=== PATIENT | female | born 1985 | race Caucasian/White ===

== ENCOUNTER 2016-02-28 00:35 | Emergency (ER) | payer MEDICAID ==
[~2016-02-28] VITALS: Ht 170.2 cm; Wt 105.0 kg
[~2016-02-28 00:35] MED LIST: AMOXICILLIN 50500 MG PO; AMOXICILLIN 8751 TAB PO; ANTIVERT 25MG25 MG PO; AUGMENTIN 875 M1 TAB PO; BENADRYL25 M2; BENADRYL25 M2 PO; CEPHALEXIN500 M1 PO; CLEOCIN HC150 MG/CAP PO; DOXYCYCLINE 10100 MG PO; FLEXERIL 1010 MG/TAB PO; LORTAB 5/500 501 TAB PO; MECLIZINE25 M1 PO; MELATONIN1 M1 PO; MIRENA52 MG IU; MOTRIN 800800 MG/TAB PO; NAPROSYN500 MG PO; NEXIUM 40MG40 MG PO; NO HOME MEDICATIONS; NORCO 325 MG-51 TAB PO; NORCO 325 MG-7.1 TAB PO; PEN-VEE K500 MG PO; PEPCID 20MG TAB20 MG PO; PERCOCET 5/321 UDTAB PO; PHENERGAN 25 TA25 MG PO; PREDNISONE10 MG PO; PRENATAL VITAMI1 TA5 PO; PRENATAL1 TA2 PO; PRENATAL1 TA3 PO; PRILOSEC 20MG20 MG PO; TUSS PO; TYLENOL 325MG325 MG PO; TYLENOL 500MG500 MG PO; TYLENOL W/COD1 UDTAB PO; ULTRAM 50MG TAB50 MG PO; ZANTAC 150MG T150 MG PO; ZITHROMAX Z PA250 MG PO; tussionex PO
[2016-02-28 00:39] VITALS: BP 131/83; TEMP 97.9
[2016-02-28 01:18] LABS: PH 5 (5-8); URINE APPEARANCE Clear; URINE BACTERIA None Seen /hpf; URINE BILIRUBIN Negative (NEGATIVE); URINE BLOOD Negative (NEGATIVE); URINE COLOR Yellow; URINE GLUCOSE Negative (NEGATIVE); URINE KETONE Negative (NEGATIVE); URINE RBC 0-2 /hpf; URINE UROBILINOGEN Negative (NEGATIVE); URINE WBC 0-2 /hpf
[2016-02-28] MEDS ORDERED: FLEXERIL 1010 MG/TAB PO (01:24)
[2016-02-28] MEDS ORDERED: MOTRIN 800800 MG/TAB PO (01:24)
[2016-02-28 01:32] VITALS: PULSE 74
== END 2016-02-28 01:33 | disposition home or self-care (01) ==
LOC: COL.ER 00:35
PROVIDERS: Physician Assistant
DX: M54.6 Pain in thoracic spine (principal)
CPT/HCPCS: J1885

== ENCOUNTER 2016-06-26 17:26 | Emergency (ER) | payer MEDICAID ==
[~2016-06-26] VITALS: Ht 167.6 cm; Wt 97.3 kg
[2016-06-26 17:32] VITALS: BP 119/84; TEMP 99
[2016-06-26 18:35] LABS: PH 5 (5-8); URINE APPEARANCE Hazy; URINE BILIRUBIN Negative (NEGATIVE); URINE BLOOD 2+ (NEGATIVE); URINE COLOR Yellow; URINE GLUCOSE Negative (NEGATIVE); URINE KETONE Negative (NEGATIVE); URINE UROBILINOGEN Negative (NEGATIVE)
[2016-06-26] MEDS ORDERED: MACROBID 1100 MG/CAP PO (19:10)
[2016-06-26 19:23] VITALS: PULSE 88
== END 2016-06-26 19:24 | disposition home or self-care (01) ==
LOC: COL.ER 17:26
PROVIDERS: Physician Assistant
DX: N39.0 Urinary tract infection, site not specified (principal)

== ENCOUNTER 2016-12-22 16:23 | Emergency (ER) | payer MEDICAID ==
[~2016-12-22] VITALS: Ht 170.2 cm; Wt 97.3 kg
[~2016-12-22 16:23] MED LIST changes: +MACROBID 1100 MG/CAP PO
[2016-12-22 16:30] VITALS: BP 145/70; TEMP 98
[2016-12-22 18:32] VITALS: PULSE 73
== END 2016-12-22 18:33 | disposition home or self-care (01) ==
LOC: COL.ER 16:23
DX: G43.909 Migraine, unspecified, not intractable, without status migrainosus (principal)
CPT/HCPCS: J1200; J1885; J2550

== ENCOUNTER 2017-02-26 13:19 | Emergency (ER) | payer MEDICAID ==
[~2017-02-26] VITALS: Ht 170.2 cm; Wt 89.5 kg
[2017-02-26 13:21] VITALS: BP 137/70; TEMP 98.1
[2017-02-26] MEDS ORDERED: TOPAMAX 25MG25 M1 PO (13:25)
[2017-02-26] MEDS ORDERED: PROBIOTIC FORMU1 CAP PO (13:25)
[2017-02-26 13:55] LABS: INFLUENZA A NEGATIVE; INFLUENZA B NEGATIVE
[2017-02-26] MEDS ORDERED: TESSALON P100 MG/CAP PO (15:22)
[2017-02-26] MEDS ORDERED: ZITHROMAX Z PA250 MG PO (15:23)
[2017-02-26 15:31] VITALS: PULSE 86
== END 2017-02-26 15:32 | disposition home or self-care (01) ==
LOC: COL.ER 13:19
PROVIDERS: Physician Assistant
DX: J40 Bronchitis, not specified as acute or chronic (principal); Z98.51 Tubal ligation status; Z87.891 Personal history of nicotine dependence

== ENCOUNTER → 2017-11-23 | Outpatient (CLI) | payer MEDICAID ==
[~2017-11-23] MED LIST changes: +PROBIOTIC FORMU1 CAP PO; +TESSALON P100 MG/CAP PO; +TOPAMAX 25MG25 M1 PO
== END ==
LOC: COL.RAD 13:04
DX: M48.061 Spinal stenosis, lumbar region without neurogenic claudication (principal)

== ENCOUNTER 2018-01-25 20:14 | Emergency (ER) | payer MEDICAID ==
[~2018-01-25] VITALS: Ht 167.6 cm; Wt 90.9 kg
[2018-01-25 20:22] VITALS: BP 133/82; TEMP 97.4
[2018-01-25] MEDS ORDERED: TESSALON PERLE200 MG PO (21:45)
[2018-01-25] MEDS ORDERED: ZITHROMAX500 M2 PO (21:45)
[2018-01-25 22:09] VITALS: PULSE 93
== END 2018-01-25 22:10 | disposition home or self-care (01) ==
LOC: COL.ER 20:14
DX: J40 Bronchitis, not specified as acute or chronic (principal); Z98.51 Tubal ligation status; Z98.890 Other specified postprocedural states
CPT/HCPCS: J7512

== ENCOUNTER 2018-06-17 18:16 | Emergency (ER) | payer MEDICAID ==
[~2018-06-17] VITALS: Ht 167.6 cm; Wt 88.6 kg
[~2018-06-17 18:16] MED LIST changes: +TESSALON PERLE200 MG PO; +ZITHROMAX500 M2 PO
[2018-06-17 18:28] VITALS: BP 131/75; TEMP 97.1
[2018-06-17 20:00] VITALS: PULSE 93
== END 2018-06-17 20:00 | disposition home or self-care (01) ==
LOC: COL.ER 18:16
DX: G43.909 Migraine, unspecified, not intractable, without status migrainosus (principal)
CPT/HCPCS: J1200; J1885

== ENCOUNTER 2018-06-27 22:57 | Emergency (ER) | payer MEDICAID ==
[~2018-06-27] VITALS: Ht 167.6 cm; Wt 93.2 kg
[2018-06-27 23:09] VITALS: BP 126/68; TEMP 98.7
[2018-06-28 00:33] LABS: BASO % 0.4 % (0.0-2.0); EOS # 0.2 (0.0-0.7); EOS % 2.7 % (0-4.0); GRAN # 5.1 (1.4-6.5); GRAN % 65.9 % (42.2-75.2); HEMOGLOBIN 12.6 g/dl (12.5-16.0); LYMPH # 1.8 (1.2-3.4); LYMPH % 23.6 % (20.0-51.0); MEAN CELL VOLUME 84 fl (80.0-100.0); MEAN CORPUSCULAR HEMOGLOBIN 29 pg (27.0-31.0); MEAN CORPUSCULAR HGB CONC 34 g/dl (33.0-37.0); MEAN PLATELET VOLUME 8.9 fl (7.4-10.4); MONO # 0.5 (0.1-0.6); MONO % 6.9 % (1.7-9.3); PLATELET COUNT 353 K/mm3 (130-400); RED BLOOD COUNT 4.35 M/mm3 (4.10-5.30); REDCELL DISTRIBUTION WIDTH-CV 13.1 % (11.5-14.5)
[2018-06-28 00:34] LABS: HEMATOCRIT 36.7 % (37.0-47.0)
[2018-06-28 00:43] LABS: ALBUMIN 4.2 gm/dL (3.5-5.0); BILIRUBIN,TOTAL 0.7 mg/dL (0.0-1.0); CALCIUM 8.7 mg/dL (8.4-10.2); CREATININE, serum 0.95 (0.52-1.25); POTASSIUM 3.9 mmol/L (3.4-5.0); TOTAL PROTEIN 7.5 gm/dL (6.4-8.2)
[2018-06-28] MEDS ORDERED: ZITHROMAX Z PA250 MG PO (02:24)
[2018-06-28 02:43] VITALS: PULSE 90
== END 2018-06-28 02:30 | disposition home or self-care (01) ==
LOC: COL.ER 22:57
PROVIDERS: Physician Assistant
DX: J20.9 Acute bronchitis, unspecified (principal); F17.210 Nicotine dependence, cigarettes, uncomplicated; Z98.890 Other specified postprocedural states; Z98.51 Tubal ligation status
CPT/HCPCS: Q9967

== ENCOUNTER 2018-07-19 09:00 | Outpatient (RCR) | payer MEDICAID | END 2018-08-14 14:51 | disposition home or self-care (01) | LOC: WSOT 09:00 | DX: G56.03 Carpal tunnel syndrome, bilateral upper limbs (principal) ==

== ENCOUNTER 2018-12-16 18:16 | Emergency (ER) | payer MEDICAID ==
[~2018-12-16] VITALS: Ht 167.6 cm; Wt 97.7 kg
[2018-12-16 18:36] VITALS: BP 140/67; TEMP 97.2
[2018-12-16] MEDS ORDERED: NAPROSYN500 MG PO (20:19)
[2018-12-16] MEDS ORDERED: FLEXERIL5 MG PO (20:19)
[2018-12-16 20:30] VITALS: PULSE 67
== END 2018-12-16 20:33 | disposition home or self-care (01) ==
LOC: COL.ER 18:16
DX: M25.511 Pain in right shoulder (principal); M25.512 Pain in left shoulder; E03.9 Hypothyroidism, unspecified; G43.909 Migraine, unspecified, not intractable, without status migrainosus; G62.9 Polyneuropathy, unspecified; Z87.891 Personal history of nicotine dependence
CPT/HCPCS: J1885

== ENCOUNTER → 2020-02-06 | Outpatient (CLI) | payer MEDICAID ==
[~2020-02-06] MED LIST changes: +FLEXERIL5 MG PO
== END ==
LOC: COL.RAD 12:35
DX: G43.909 Migraine, unspecified, not intractable, without status migrainosus (principal)

== ENCOUNTER 2020-05-31 22:11 | Emergency (ER) | payer MEDICAID ==
[~2020-05-31] VITALS: Ht 167.6 cm; Wt 100.0 kg
[2020-05-31 22:15] VITALS: TEMP 97
[2020-05-31] MEDS ORDERED: NORCO 325 MG-51 TAB PO (23:07)
[2020-05-31] MEDS ORDERED: CEPHALEXIN500 M1 PO (23:08)
[2020-05-31 23:19] VITALS: BP 146/96; PULSE 110
== END 2020-05-31 23:20 | disposition home or self-care (01) ==
LOC: COL.ER 22:11
DX: S61.233A Puncture wound without foreign body of left middle finger without damage to nail, initial encounter (principal); Z88.0 Allergy status to penicillin; Z88.1 Allergy status to other antibiotic agents; Z88.5 Allergy status to narcotic agent; W29.8XXA Contact with other powered hand tools and household machinery, initial encounter

== ENCOUNTER 2020-09-19 21:24 | Emergency (ER) | payer MEDICAID ==
[~2020-09-19] VITALS: Ht 162.6 cm; Wt 100.0 kg
[2020-09-19 21:29] VITALS: TEMP 97.5
[2020-09-19] MEDS ORDERED: ZOFRAN 4MG T4 MG/TAB PO (22:40)
[2020-09-19 22:46] VITALS: BP 121/73; PULSE 79
== END 2020-09-19 22:46 | disposition home or self-care (01) ==
LOC: COL.ER 21:24
DX: G43.909 Migraine, unspecified, not intractable, without status migrainosus (principal); Z79.891 Long term (current) use of opiate analgesic
CPT/HCPCS: J1200; J1885; J2405

== ENCOUNTER 2022-04-11 23:31 | Emergency (ER) | payer MEDICAID ==
[~2022-04-11] VITALS: Ht 170.2 cm; Wt 100.0 kg
[~2022-04-11 23:31] MED LIST changes: +ZOFRAN 4MG T4 MG/TAB PO; +ZOFRAN ODT4 MG PO
[2022-04-11 23:44] VITALS: TEMP 97.8
[2022-04-12 00:40] LABS: BASO % 0.6 % (0.0-2.0); EOS # 0.2 K/mm3 (0.0-0.7); EOS % 3.4 % (0.0-4.0); GRAN # 4.1 K/mm3 (1.4-6.5); GRAN % 63.4 % (42.2-75.2); HEMOGLOBIN 12.7 g/dl (12.5-16.0); LYMPH # 1.6 K/mm3 (1.2-3.4); MEAN CELL VOLUME 83 fl (80.0-100.0); MEAN CORPUSCULAR HEMOGLOBIN 29 pg (27-31); MEAN CORPUSCULAR HGB CONC 35 g/dl (33.0-37.0); MEAN PLATELET VOLUME 8.9 fl (7.4-10.4); MONO # 0.5 K/mm3 (0.1-0.6); MONO % 7.3 % (1.7-9.3); PLATELET COUNT 301 K/mm3 (130-400); RED BLOOD COUNT 4.42 M/mm3 (4.10-5.30); REDCELL DISTRIBUTION WIDTH-CV 12.8 % (11.5-14.5)
[2022-04-12 00:42] LABS: HEMATOCRIT 36.8 % (37.0-47.0)
[2022-04-12 00:55] LABS: ALBUMIN 3.7 gm/dL (3.5-5.0); BILIRUBIN,TOTAL 0.7 mg/dL (0.2-1.2); CALCIUM 9.2 mg/dL (8.4-10.2); CREATININE, serum 0.75 mg/dL (0.57-1.11); POTASSIUM 4.2 mmol/L (3.5-4.5); TOTAL PROTEIN 6.7 gm/dL (6.2-8.1)
[2022-04-12] MEDS ORDERED: TESSALON P100 MG/CAP PO (01:37)
[2022-04-12 01:46] VITALS: BP 130/80; PULSE 70
== END 2022-04-12 01:47 | disposition home or self-care (01) ==
LOC: COL.ER 23:31
PROVIDERS: Emergency Medicine Emergency Medical Services
DX: J98.8 Other specified respiratory disorders (principal); B34.9 Viral infection, unspecified; Z28.310 Unvaccinated for COVID-19; Z20.822 Contact with and (suspected) exposure to COVID-19

== ENCOUNTER 2022-05-10 00:39 | Emergency (ER) | payer MEDICAID ==
[~2022-05-10] VITALS: Ht 172.7 cm; Wt 100.0 kg
[2022-05-10 00:45] VITALS: TEMP 98.1
[2022-05-10 02:29] LABS: BASO % 0.4 % (0.0-2.0); EOS # 0.2 K/mm3 (0.0-0.7); EOS % 2.7 % (0.0-4.0); GRAN # 4.5 K/mm3 (1.4-6.5); HEMATOCRIT 38.6 % (37.0-47.0); HEMOGLOBIN 13.5 g/dl (12.5-16.0); LYMPH # 1.6 K/mm3 (1.2-3.4); MEAN CELL VOLUME 84 fl (80.0-100.0); MEAN CORPUSCULAR HEMOGLOBIN 29 pg (27-31); MEAN CORPUSCULAR HGB CONC 35 g/dl (33.0-37.0); MEAN PLATELET VOLUME 8.8 fl (7.4-10.4); MONO # 0.4 K/mm3 (0.1-0.6); MONO % 5.6 % (1.7-9.3); PLATELET COUNT 297 K/mm3 (130-400); RED BLOOD COUNT 4.61 M/mm3 (4.10-5.30); REDCELL DISTRIBUTION WIDTH-CV 12.5 % (11.5-14.5)
[2022-05-10 02:52] LABS: BILIRUBIN,TOTAL 0.5 mg/dL (0.2-1.2); C-REACTIVE PROTEIN 0.58 mg/dL (0.00-0.50); CALCIUM 9.3 mg/dL (8.4-10.2); CREATININE, serum 0.77 mg/dL (0.57-1.11); TOTAL PROTEIN 7.4 gm/dL (6.2-8.1)
[2022-05-10 03:16] LABS: ERYTHROCYTE SEDIMENTATION RATE 15 mm/hr (0-20)
[2022-05-10 04:33] VITALS: BP 122/78; PULSE 70
== END 2022-05-10 04:33 | disposition home or self-care (01) ==
LOC: COL.ER 00:39
PROVIDERS: Emergency Medicine
DX: M25.462 Effusion, left knee (principal); R60.0 Localized edema; E03.9 Hypothyroidism, unspecified; M06.9 Rheumatoid arthritis, unspecified; R79.82 Elevated C-reactive protein (CRP); I10 Essential (primary) hypertension; F17.200 Nicotine dependence, unspecified, uncomplicated; Z79.899 Other long term (current) drug therapy; Z91.14 Patient's other noncompliance with medication regimen; Z28.310 Unvaccinated for COVID-19

== ENCOUNTER 2023-02-02 21:05 | Emergency (ER) | payer MEDICAID ==
[~2023-02-02] VITALS: Ht 167.6 cm; Wt 100.0 kg
[2023-02-02 21:10] VITALS: TEMP 100.2
[2023-02-02 22:03] LABS: BASO % 0.6 % (0.0-2.0); GRAN # 4.1 K/mm3 (1.4-6.5); GRAN % 82.8 % (42.2-75.2); HEMATOCRIT 42.6 % (37.0-47.0); HEMOGLOBIN 14.7 g/dl (12.5-16.0); LYMPH # 0.4 K/mm3 (1.2-3.4); MEAN CELL VOLUME 84 fl (80.0-100.0); MEAN CORPUSCULAR HEMOGLOBIN 29 pg (27-31); MEAN CORPUSCULAR HGB CONC 35 g/dl (33.0-37.0); MEAN PLATELET VOLUME 8.8 fl (7.4-10.4); MONO # 0.5 K/mm3 (0.1-0.6); PLATELET COUNT 200 K/mm3 (130-400); RED BLOOD COUNT 5.06 M/mm3 (4.10-5.30); REDCELL DISTRIBUTION WIDTH-CV 12.2 % (11.5-14.5)
[2023-02-02 22:24] LABS: ALBUMIN 4.1 gm/dL (3.5-5.0); BILIRUBIN,TOTAL 1.2 mg/dL (0.2-1.2); CALCIUM 9.3 mg/dL (8.4-10.2); CREATININE, serum 0.97 mg/dL (0.57-1.11); POTASSIUM 4.1 mmol/L (3.5-4.5); TOTAL PROTEIN 7.8 gm/dL (6.2-8.1)
[2023-02-02] MEDS ORDERED: ZOFRAN ODT4 MG PO (23:13)
[2023-02-02 23:39] VITALS: BP 103/64; PULSE 91
== END 2023-02-02 23:19 | disposition home or self-care (01) ==
LOC: COL.ER 21:05
PROVIDERS: Emergency Medicine
DX: J10.1 Influenza due to other identified influenza virus with other respiratory manifestations (principal)
CPT/HCPCS: J1885; J2405; J7030

== ENCOUNTER 2023-03-16 20:58 | Emergency (ER) | payer SELFPAY ==
[~2023-03-16] VITALS: Ht 167.6 cm; Wt 100.0 kg
[2023-03-16 21:42] VITALS: TEMP 99.1
[2023-03-16 22:46] LABS: BASO % 0.4 % (0.0-2.0); EOS # 0.2 K/mm3 (0.0-0.7); EOS % 2.6 % (0.0-4.0); GRAN # 4.8 K/mm3 (1.4-6.5); GRAN % 70.1 % (42.2-75.2); HEMOGLOBIN 13.1 g/dl (12.5-16.0); LYMPH # 1.5 K/mm3 (1.2-3.4); LYMPH % 21.1 % (20.0-51.0); MEAN CELL VOLUME 86 fl (80.0-100.0); MEAN CORPUSCULAR HEMOGLOBIN 30 pg (27-31); MEAN CORPUSCULAR HGB CONC 35 g/dl (33.0-37.0); MEAN PLATELET VOLUME 9.1 fl (7.4-10.4); MONO # 0.4 K/mm3 (0.1-0.6); MONO % 5.4 % (1.7-9.3); PLATELET COUNT 269 K/mm3 (130-400); RED BLOOD COUNT 4.41 M/mm3 (4.10-5.30); REDCELL DISTRIBUTION WIDTH-CV 12.8 % (11.5-14.5)
[2023-03-16 22:59] LABS: CREATININE, serum 0.83 mg/dL (0.57-1.11); POTASSIUM 3.8 mmol/L (3.5-4.5)
[2023-03-16 23:07] LABS: INR 1.1 (0.8-3.0); PROTHROMBIN TIME 11.8 SECONDS (9.7-12.8)
[2023-03-16 23:10] LABS: D-DIMER < 200.00 ng/mLDDu (200-230)
[2023-03-16] MEDS ORDERED: Amoxicillin 500 MG CAP PO ONE (23:45)
[2023-03-16] MEDS ORDERED: Sulfamethoxazole/Trimethoprim 800-160 MG TAB PO ONE (23:45)
[2023-03-16] MEDS ORDERED: AMOXICILLIN875 MG PO (23:47)
[2023-03-16] MEDS ORDERED: BACTRIM DS 8001 TAB PO (23:47)
[2023-03-17 00:03] VITALS: BP 115/56; PULSE 99
== END 2023-03-17 00:06 | disposition home or self-care (01) ==
LOC: COL.ER 20:58
PROVIDERS: Internal Medicine
DX: L03.116 Cellulitis of left lower limb (principal); R60.0 Localized edema; Z88.0 Allergy status to penicillin

== ENCOUNTER 2023-06-11 22:13 | Emergency (ER) | payer SELFPAY ==
[~2023-06-11] VITALS: Ht 167.6 cm; Wt 100.0 kg
[~2023-06-11 22:13] MED LIST changes: +AMOXICILLIN875 MG PO; +BACTRIM DS 8001 TAB PO
[2023-06-11 22:22] VITALS: TEMP 98.3
[2023-06-11] MEDS ORDERED: NORCO 325 MG-51 TAB PO (22:37)
[2023-06-11] MEDS ORDERED: Cyclobenzaprine 10 MG TAB PO ONE (22:45)
[2023-06-11] MEDS ORDERED: Lidocaine 4% Topical Patch TP ONE (22:45)
[2023-06-11 22:51] VITALS: BP 122/75; PULSE 91
== END 2023-06-11 22:51 | disposition home or self-care (01) ==
LOC: COL.ER 22:13
DX: S29.012A Strain of muscle and tendon of back wall of thorax, initial encounter (principal); Z88.5 Allergy status to narcotic agent; X50.1XXA Overexertion from prolonged static or awkward postures, initial encounter; Y93.E2 Activity, laundry

== ENCOUNTER → 2023-08-08 | Outpatient (CLI) | payer MEDICAID | LOC: COL.RAD 07:49 | DX: K80.20 Calculus of gallbladder without cholecystitis without obstruction (principal); K76.0 Fatty (change of) liver, not elsewhere classified ==

== ENCOUNTER 2023-08-19 21:04 | Emergency (ER) | payer MEDICAID ==
[~2023-08-19] VITALS: Ht 167.6 cm; Wt 100.0 kg
[2023-08-19 21:08] VITALS: TEMP 98.2
[2023-08-19] MEDS ORDERED: Ondansetron 4 MG/2 ML VIAL IV ONE (21:45)
[2023-08-19] MEDS ORDERED: Ketorolac 15 MG/ML VIAL IV ONE (21:45)
[2023-08-19] MEDS ORDERED: Morphine 4 MG/ML VIAL IV ONE (21:45)
[2023-08-19] MEDS ORDERED: NS 1,000 ML IV ONE (21:45)
[2023-08-19 21:46] LABS: BASO % 0.4 % (0.0-2.0); EOS # 0.1 K/mm3 (0.0-0.7); EOS % 1.4 % (0.0-4.0); GRAN # 5.2 K/mm3 (1.4-6.5); GRAN % 70.2 % (42.2-75.2); HEMATOCRIT 39.2 % (37.0-47.0); HEMOGLOBIN 13.5 g/dl (12.5-16.0); LYMPH # 1.5 K/mm3 (1.2-3.4); LYMPH % 19.6 % (20.0-51.0); MEAN CELL VOLUME 84 fl (80.0-100.0); MEAN CORPUSCULAR HEMOGLOBIN 29 pg (27-31); MEAN CORPUSCULAR HGB CONC 34 g/dl (33.0-37.0); MEAN PLATELET VOLUME 8.8 fl (7.4-10.4); MONO # 0.6 K/mm3 (0.1-0.6); PLATELET COUNT 274 K/mm3 (130-400); RED BLOOD COUNT 4.69 M/mm3 (4.10-5.30); REDCELL DISTRIBUTION WIDTH-CV 12.8 % (11.5-14.5)
[2023-08-19 22:02] LABS: COLLECTION METHOD CLEAN CATCH
[2023-08-19 22:06] LABS: ALBUMIN 4.4 g/dL (3.5-5.0); CALCIUM 9.7 mg/dL (8.4-10.2); CREATININE, serum 1.33 mg/dL (0.57-1.11); POTASSIUM 3.9 mEq/L (3.5-4.5); TOTAL PROTEIN 7.7 g/dl (6.2-8.1)
[2023-08-19 22:19] LABS: URINE APPEARANCE CLOUDY (CLEAR/HAZY); URINE BLOOD 2+ (NEGATIVE); URINE COLOR YELLOW (YELLOW); URINE GLUCOSE NEGATIVE (NEGATIVE); URINE KETONE NEGATIVE (NEGATIVE); URINE NITRATE NEGATIVE (NEGATIVE); URINE PROTEIN(semi-quant) 1+ (NEGATIVE)
[2023-08-19 22:20] LABS: BILIRUBIN,TOTAL 1.1 mg/dL (0.2-1.2)
[2023-08-19 22:34] LABS: URINE RBC 0-2 /hpf (0-2); URINE WBC 0-2 /hpf (0-2)
[2023-08-19 22:35] LABS: MUCOUS PRESENT (NOT PRESENT); SQUAMOUS EPITHELIAL 0-2 /hpf (0-10); URINE BACTERIA RARE /hpf (NONE SEEN); URINE CALCIUM OXALATE CRYSTAL PRESENT (NOT PRESENT)
[2023-08-19] MEDS ORDERED: Iohexol 300 - 100 ML VIAL IV ONE (23:33)
[2023-08-19] MEDS ORDERED: NS 50 ML IV ONE (23:35)
[2023-08-20 01:18] VITALS: BP 137/88; PULSE 78
== END 2023-08-20 01:20 | disposition home or self-care (01) ==
LOC: COL.ER 21:04
PROVIDERS: Emergency Medicine
DX: K80.70 Calculus of gallbladder and bile duct without cholecystitis without obstruction (principal)
CPT/HCPCS: J1885; J2270; J2405; J7030; Q9967

== ENCOUNTER 2023-10-14 20:33 | Emergency (ER) | payer MEDICAID ==
[~2023-10-14] VITALS: Ht 167.6 cm; Wt 100.0 kg
[2023-10-14 20:35] VITALS: TEMP 97.8
[2023-10-14 22:04] LABS: BASO % 0.8 % (0.0-2.0); EOS # 0.2 K/mm3 (0.0-0.7); EOS % 3.6 % (0.0-4.0); GRAN # 2.8 K/mm3 (1.4-6.5); GRAN % 53.4 % (42.2-75.2); HEMOGLOBIN 13.9 g/dl (12.5-16.0); LYMPH # 1.8 K/mm3 (1.2-3.4); LYMPH % 34.3 % (20.0-51.0); MEAN CELL VOLUME 84 fl (80.0-100.0); MEAN CORPUSCULAR HEMOGLOBIN 29 pg (27-31); MEAN CORPUSCULAR HGB CONC 35 g/dl (33.0-37.0); MONO # 0.4 K/mm3 (0.1-0.6); MONO % 7.7 % (1.7-9.3); PLATELET COUNT 250 K/mm3 (130-400); RED BLOOD COUNT 4.77 M/mm3 (4.10-5.30); REDCELL DISTRIBUTION WIDTH-CV 12.4 % (11.5-14.5)
[2023-10-14 22:26] LABS: ALBUMIN 3.7 g/dL (3.5-5.0); BILIRUBIN,TOTAL 0.6 mg/dL (0.2-1.2); CALCIUM 9.6 mg/dL (8.4-10.2); CREATININE, serum 0.79 mg/dL (0.57-1.11); POTASSIUM 4.3 mEq/L (3.5-4.5)
[2023-10-14] MEDS ORDERED: Iohexol 300 - 100 ML VIAL IV ONE (23:22)
[2023-10-14] MEDS ORDERED: NS 50 ML IV ONE (23:23)
[2023-10-15 01:05] VITALS: BP 127/80; PULSE 80
== END 2023-10-15 01:06 | disposition home or self-care (01) ==
LOC: COL.ER 20:33
PROVIDERS: Nurse Practitioner
DX: S39.011A Strain of muscle, fascia and tendon of abdomen, initial encounter (principal); X58.XXXA Exposure to other specified factors, initial encounter
CPT/HCPCS: Q9967